=== PATIENT | male | born 1975 | race Caucasian/White ===

== ENCOUNTER 2021-01-06 19:16 | Emergency (ER) | payer BC ==
[2021-01-06 20:01] LABS: HEMOGLOBIN 14.8 gm/dl (14.0-17.5); RED BLOOD COUNT 4.8 M/UL (4.20-5.50); WHITE BLOOD COUNT 18.9 K/UL (4.5-11.0)
== END 2021-01-06 23:59 | disposition short-term general hospital (02) ==
LOC: ER1 19:16
PROVIDERS: Emergency Medicine
DX: S62.302B Unspecified fracture of third metacarpal bone, right hand, initial encounter for open fracture (principal); S62.304B Unspecified fracture of fourth metacarpal bone, right hand, initial encounter for open fracture; S62.306B Unspecified fracture of fifth metacarpal bone, right hand, initial encounter for open fracture; S61.411A Laceration without foreign body of right hand, initial encounter; V86.69XA Passenger of other special all-terrain or other off-road motor vehicle injured in nontraffic accident, initial encounter; Y92.410 Unspecified street and highway as the place of occurrence of the external cause; Z23 Encounter for immunization
CPT/HCPCS: 70450; 71260; 72125; 73090; 73110; 73130; 80053; 83690; 85025; 85610; 85730; 90471; 90715; 93005; 96374; 96375; 96376; 99285; J0690; J2270; J2405; Q9967